=== PATIENT | male | born 1995 | race Caucasian/White ===

== ENCOUNTER 2021-08-17 04:19 | Emergency (ER) | payer SELFPAY ==
[~2021-08-17] VITALS: Ht 185.4 cm; Wt 72.6 kg
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
--- NOTE | 2021-08-17 04:51 | NUR ---
PT SEEN BY DR. MIKE
--- NOTE | 2021-08-17 04:55 | NUR ---
PT TAKEN TO CT VIA W/C
--- NOTE | 2021-08-17 05:05 | NUR ---
PT RETURNED TO ER ROOM 19 FROM [facility] W/C
[2021-08-17] MEDS ORDERED: AMOX-430 PO (06:02)
[2021-08-17] MEDS ORDERED: AMOX/CLAVULANATE 875 MG TABLET ONE (06:12)
--- NOTE | 2021-08-17 06:15 | NUR ---
Patient discharged to home in stable condition. Written and verbal after care instructions given. Patient verbalizes understanding of instruction. Pt ambulatory with a steady gait
[2021-08-17 06:16] VITALS: BP 128/75
[2021-08-17] MEDS ORDERED: AMOX/CLAVULANATE 875 MG TABLET PO ONE (06:30)
== END 2021-08-17 06:16 | disposition home or self-care (01) ==
LOC: ER 04:26
DX: S02.2XXA Fracture of nasal bones, initial encounter for closed fracture (principal); R04.0 Epistaxis; Y08.89XA Assault by other specified means, initial encounter; Y93.89 Activity, other specified; Y92.89 Other specified places as the place of occurrence of the external cause; Y99.8 Other external cause status
CPT/HCPCS: 70486-TC